=== PATIENT | female | born 1995 | race Caucasian/White ===

== ENCOUNTER → 2020-09-03 | Outpatient (CLI) | payer OTHER ==
[~2020-09-03] MED LIST: BIRTH CONTROL; DESYREL150 MG PO; FLONASE 0.05%50 MCG NARES; PRILOSEC OTC20 MG PO; SINGULAIR 10 MG10 M1 PO; VITAMIN D375 MCG PO
== END ==
LOC: M.ULTRA 07:30
PROVIDERS: ATTEND Specialist
DX: R22.1 Localized swelling, mass and lump, neck (principal); M54.2 Cervicalgia; K21.9 Gastro-esophageal reflux disease without esophagitis; R06.00 Dyspnea, unspecified; F12.90 Cannabis use, unspecified, uncomplicated; Z79.899 Other long term (current) drug therapy; Z72.89 Other problems related to lifestyle

== ENCOUNTER 2020-09-05 12:31 | Emergency (ER) | payer OTHER ==
[~2020-09-05] VITALS: Ht 160 cm; Wt 63.5 kg
[2020-09-05] MEDS ORDERED: VITAMIN D375 MCG PO (12:42)
[2020-09-05] MEDS ORDERED: FLONASE 0.05%50 MCG NARES (12:42)
[2020-09-05] MEDS ORDERED: DESYREL150 MG PO (12:42)
[2020-09-05] MEDS ORDERED: BIRTH CONTROL (12:42)
[2020-09-05] MEDS ORDERED: SINGULAIR 10 MG10 M1 PO (12:42)
[2020-09-05] MEDS ORDERED: PRILOSEC OTC20 MG PO (12:43)
[2020-09-05 13:17] LABS: ABSOLUTE LYMPHOCYTES 1.4 thou/uL (0.8-5.3); ABSOLUTE MONOCYTES 0.8 thou/uL (0.0-1.2); ABSOLUTE NEUTROPHILS 4.2 thou/uL (1.6-8.1); BASOPHILS 0.3 %; EOSINOPHILS 0.8 %; HEMATOCRIT 37.4 % (37.0-47.0); HEMOGLOBIN 13.2 gm/dL (12.0-15.0); LYMPHOCYTES 21.2 %; MCH 32.3 pg (26.0-34.0); MCHC 35.4 g/dL (28.0-37.0); MCV 91.2 fL (80.0-100.0); MONOCYTES 12.3 %; MPV 8.1 fl. (7.2-11.1); NUCLEATED RBCS 0 /100WBC; PLATELET COUNT* 249 thou/uL (150-400); POLYS 65.4 %; RDW-CV 12.1 % (10.5-14.5); WBC 6.4 thou/uL (4.0-11.0)
[2020-09-05 13:28] LABS: CALCIUM 8.8 mg/dL (8.5-10.1); CREATININE 0.8 mg/dL (0.6-1.3); POTASSIUM 3.5 mmol/L (3.5-5.1)
[2020-09-05 13:32] LABS: MAGNESIUM 1.9 mg/dL (1.8-2.4); TOTAL BILIRUBIN 0.5 mg/dL (<0.1-1.0); TOTAL PROTEIN 7.1 g/dL (6.4-8.2)
[2020-09-05 13:55] LABS: URINE BLOOD NEGATIVE (Negative); URINE CLARITY CLEAR; URINE COLOR YELLOW; URINE GLUCOSE-RANDOM NEGATIVE (Negative); URINE KETONES NEGATIVE (Negative); URINE LEUKOCYTES-REFLEX NEGATIVE (Negative); URINE NITRITE-REFLEX NEGATIVE (Negative); URINE PROTEIN NEGATIVE (Negative); URINE SPECIFIC GRAVITY >= 1.030 (1.005-1.030); URINE UROBILINOGEN 0.2 E.U./dl (0.2-1.0)
[2020-09-05 13:56] LABS: ICTOTEST (BILI CONFIRMATORY) Negative (Negative); URINE BILIRUBIN 1+ (Negative)
[2020-09-05 14:31] VITALS: BP 133/87
--- NOTE | 2020-09-06 13:55 | EKG ---
[place] [address] ELECTROCARDIOGRAM REPORT Name: DARLEEN CANTRELL Room: [facility]#: [id number] Admission: 09/05/20 Attend Phys: Discharge: 09/05/20 Date of : 89 Date of Service: 09/05/20 1313 Report #: [id number] THIS REPORT FOR: //name// [facility] ED Test Date: 2020-09-05 Test Time: 13:13:25 Pat Name: DARLEEN CANTRELL Department: Room: Gender: Tire Man: DSWest : 1995 Requested By: Román Soto Order Number: [id number] : Bruce Yoo Measurements Intervals [place] Rate: 61 P: 71 IA: 158 QRS: 61 QRSD: 85 T: 26 QT: 392 QTc: 395 Interpretive Statements Sinus rhythm Baseline wander in lead(s) V6 No previous ECG available for comparison Electronically Signed On 09-06-2020 13:55:03 CDT by Bruce Yoo [email or web address] <ELECTRONICALLY SIGNED> By: Bruce Yoo MD, [facility] 09/06/20 1355 1313 1313 Bruce Yoo MD, FAC /EPI
== END 2020-09-05 14:31 | disposition home or self-care (01) ==
LOC: M.ERS 12:31
PROVIDERS: Emergency Medicine Emergency Medical Services
DX: R19.7 Diarrhea, unspecified (principal)

== ENCOUNTER → 2021-04-19 | Outpatient (CLI) | payer OTHER | LOC: M.NUC 04-14 07:45 | PROVIDERS: ATTEND Nurse Practitioner Family | DX: K90.49 Malabsorption due to intolerance, not elsewhere classified (principal); R10.13 Epigastric pain ==